=== PATIENT | female | born 1995 | race Two or more races ===

== ENCOUNTER 2017-11-23 21:04 | Emergency (ER) | payer MEDICAID ==
[~2017-11-23] VITALS: Ht 160 cm; Wt 51.3 kg
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
--- NOTE | 2017-11-23 21:05 | NUR ---
ER MD DE JESUS AT BEDSIDE
[2017-11-23] MEDS ORDERED: ACETAMINOPHEN ES 500 MG TABLET ONE (21:27)
[2017-11-23] MEDS ORDERED: ACETAMINOPHEN ES 500 MG TABLET PO ONE (21:30)
[2017-11-23 22:28] VITALS: BP 119/80
== END 2017-11-23 22:29 | disposition home or self-care (01) ==
LOC: ER 21:06
DX: S00.03XA Contusion of scalp, initial encounter (principal); V43.62XA Car passenger injured in collision with other type car in traffic accident, initial encounter; Y93.89 Activity, other specified; Y92.89 Other specified places as the place of occurrence of the external cause; Y99.8 Other external cause status
CPT/HCPCS: 70450; 70486; 99284; A4606; Z7610